=== PATIENT | female | born 1935 | race Caucasian/White ===

== ENCOUNTER 2016-10-13 10:02 | Day surgery (SDC) | payer MEDICARE, BC ==
--- NOTE | ~2016-10-13 | EGD ---
EGD REPORT [facility] [address] [address] NAME: RAJI MEREDITH : 39 [place]US : [place] [facility] [place] [id number] AGE: 81 ADM/REG DATE : 10/13/16 MR#: [id number] REPORT SERV DATE: 10/13/16 DICTATED BY: CEASAR HART DATE: 10/13/16 REPORT STATUS : Draft [facility] DATE: 10/13/16 Endoscopy Center Patient Name: Raji Meredith Date of : 1935 Attending MD: JULY HART MD Procedure Date No Time: 10/13/2016 Procedure: Colonoscopy Indications: Clinically significant diarrhea of unexplained origin, Weight loss Referring MD: TAMIKO BARCENAS Medicines: See the Anesthesia note for documentation of the administered medications Complications: No immediate complications. Estimated blood loss: None. Procedure: Pre-Anesthesia Assessment: - ASA Grade Assessment: II - A patient with mild systemic disease. - Prior to the procedure, a History and Physical was performed, and patient medications and allergies were reviewed. The patient's tolerance of previous anesthesia was also reviewed. The risks and benefits of the procedure and the sedation options and risks were discussed with the patient. All questions were answered, and informed consent was obtained. Prior Anticoagulants: The patient has taken no previous anticoagulant or antiplatelet agents. After reviewing the risks and benefits, the patient was deemed in satisfactory condition to undergo the procedure. After I obtained informed consent, the scope was passed under direct vision. Throughout the procedure, the patient's blood pressure, pulse, and oxygen saturations were monitored continuously. The PCF [id number] was introduced through the anus and advanced to the cecum, identified by appendiceal orifice and ileocecal valve. The ileocecal valve, appendiceal orifice and rectum were photographed. The entire colon was examined. The colonoscopy was performed without difficulty. The patient tolerated the procedure well. The quality of the bowel preparation was adequate. Findings: The perianal and digital rectal examinations were normal. Normal mucosa was found in the entire colon. Biopsies were taken with a cold forceps for histology. Multiple small and large-mouthed diverticula were found in the sigmoid colon and in the descending colon. EGD REPORT [address] [address] NAME: RAJI MEREDITH : [birth year] [place] : [place] [facility] [place]#: [id number] AGE: 81 ADM/REG DATE : 10/13/16 MR#: [id number] REPORT SERV DATE: 10/13/16 DICTATED BY: CEASAR HART DATE: 10/13/16 REPORT STATUS : Draft TRANSCRIBED BY: [facility] DATE: 10/13/16 No other significant abnormalities were identified in a careful examination of the remainder of the colon. Impression: - Normal mucosa in the entire examined colon. Biopsied. - Diverticulosis in the sigmoid colon and in the descending colon. Recommendation: - Patient has a contact number available for emergencies. The signs and symptoms of potential delayed complications were discussed with the patient. Return to normal activities tomorrow. Written discharge instructions were provided to the patient. - High fiber diet indefinitely. - Discharge patient to home. - Continue present medications. - Await pathology results. - Repeat colonoscopy is not recommended for surveillance. - Return to nurse practitioner in 3 weeks. Procedure Code(s): --- Professional --- 67155, Colonoscopy, flexible, proximal to splenic flexure; with biopsy, single or multiple Diagnosis Code(s): --- Professional --- K57.30, Diverticulosis of large intestine without perforation or abscess without bleeding R19.7, Diarrhea, unspecified R63.4, Abnormal weight loss CPT copyright 2013 [employer]. All rights reserved. The codes documented in this report are preliminary and upon jewelry internship review may be revised to meet current compliance requirements. JULY HART MD 10/13/2016 1:54 PM This report has been signed electronically. Number of Addenda: 0 Note Initiated On: 10/13/2016 1:20 PM Scope Withdrawal Time 0 hours 7 minutes 58 seconds [id number] [id number]
--- NOTE | ~2016-10-13 | EGD ---
EGD REPORT [facility] [address] [address] NAME: RAJI MEREDITH : 39 STATUS : REG [facility]#: [id number] AGE: 81 ADM/REG DATE : 10/13/16 MR#: [id number] REPORT SERV DATE: 10/13/16 DICTATED BY: CEASAR HART DATE: 10/13/16 REPORT STATUS : Draft [facility] DATE: 10/13/16 Endoscopy Center Patient Name: Raji Meredith Date of : 1935 Attending MD: JULY HART MD Procedure Date No Time: 10/13/2016 Procedure: Upper GI endoscopy Indications: Epigastric abdominal pain, Melena Referring MD: TAMIKO BARCENAS Medicines: See the Anesthesia note for documentation of the administered medications Complications: No immediate complications. Estimated blood loss: None. Procedure: Pre-Anesthesia Assessment: - ASA Grade Assessment: II - A patient with mild systemic disease. - Prior to the procedure, a History and Physical was performed, and patient medications and allergies were reviewed. The patient's tolerance of previous anesthesia was also reviewed. The risks and benefits of the procedure and the sedation options and risks were discussed with the patient. All questions were answered, and informed consent was obtained. Prior Anticoagulants: The patient has taken no previous anticoagulant or antiplatelet agents. After reviewing the risks and benefits, the patient was deemed in satisfactory condition to undergo the procedure. After obtaining informed consent, the endoscope was passed under direct vision. Throughout the procedure, the patient's blood pressure, pulse, and oxygen saturations were monitored continuously. The GIF H190 [id number] was introduced through the mouth, and advanced to the second part of duodenum. The upper GI endoscopy was accomplished without difficulty. The patient tolerated the procedure well. Findings: The examined duodenum was normal. The entire examined stomach was normal. A small hiatus hernia was present. A non-obstructing Schatzki ring (acquired) was found at the gastroesophageal junction. Impression: - Normal examined duodenum. - Normal stomach. - Hiatus hernia. EGD REPORT [address] [address] NAME: RAJI MEREDITH : [birth year] [place] [facility] [place] [id number] AGE: 81 ADM/REG DATE : 10/13/16 MR#: [id number] REPORT SERV DATE: 10/13/16 DICTATED BY: CEASAR HART DATE: 10/13/16 REPORT STATUS : Draft TRANSCRIBED BY: [employer] [facility] DATE: 10/13/16 - Non-obstructing Schatzki ring. Recommendation: - Patient has a contact number available for emergencies. The signs and symptoms of potential delayed complications were discussed with the patient. Return to normal activities tomorrow. Written discharge instructions were provided to the patient. - Regular diet. - Discharge patient to home. - Continue present medications. Procedure Code(s): --- Professional --- 77269, Esophagogastroduodenoscopy, flexible, transoral; diagnostic, including collection of specimen(s) by brushing or washing, when performed (separate procedure) Diagnosis Code(s): --- Professional --- K44.9, Diaphragmatic hernia without obstruction or gangrene K22.2, Esophageal obstruction R10.13, Epigastric pain K92.1, Melena CPT copyright 2013 [employer]. All rights reserved. The codes documented in this report are preliminary and upon director community center review may be revised to meet current compliance requirements. Attending Participation: I personally performed the entire procedure. JULY HART MD 10/13/2016 1:34 PM This report has been signed electronically. Number of Addenda: 0 Note Initiated On: 10/13/2016 1:24 PM Scope Withdrawal Time 0 hours 0 minutes 0 seconds [id number] [id number]
== END 2016-10-13 23:59 | disposition home or self-care (01) ==
LOC: DMU 10:02
PROVIDERS: Internal Medicine Gastroenterology
PROC: 0DBE8ZX Excision of Large Intestine, Via Natural or Artificial Opening Endoscopic, Diagnostic (ICD-10-PCS; principal; 2016-10-13 13:28)
PROC: 0DJ08ZZ Inspection of Upper Intestinal Tract, Via Natural or Artificial Opening Endoscopic (ICD-10-PCS; 2016-10-13 13:28)
DX: K52.832 Lymphocytic colitis (principal); K57.30 Diverticulosis of large intestine without perforation or abscess without bleeding; R19.7 Diarrhea, unspecified; R63.4 Abnormal weight loss; K44.9 Diaphragmatic hernia without obstruction or gangrene; K22.2 Esophageal obstruction; K92.1 Melena; R10.13 Epigastric pain; I10 Essential (primary) hypertension; K21.9 Gastro-esophageal reflux disease without esophagitis; M19.90 Unspecified osteoarthritis, unspecified site; F41.9 Anxiety disorder, unspecified; Z79.899 Other long term (current) drug therapy
CPT/HCPCS: 88305